=== PATIENT | female | born 1985 | race Hispanic/Latino ===

== ENCOUNTER 2018-02-24 16:34 | Emergency (ER) | payer OTHER ==
[2018-02-24 17:53] VITALS: BMI 39.4
[2018-02-24 18:55] LABS: BASO % 0.3 % (0.0-2.0); EOS # 0.1 K/uL (0.0-0.7); HEMOGLOBIN 12.4 g/dL (12.0-16.0); LYMPH # 1.9 K/uL (1.0-4.3); LYMPH % 20.1 % (20.0-40.0); MEAN CELL VOLUME 98.3 fl (81.0-99.0); MEAN CORPUSCULAR HEMOGLOBIN 34.7 pg (27.0-31.0); MEAN CORPUSCULAR HGB CONC 35.2 g/dL (33.0-37.0); MEAN PLATELET VOLUME 8.1 fl (7.2-11.7); MONO # 0.6 K/uL (0.0-0.8); MONO % 6.1 % (0.0-10.0); NEUT # 6.8 K/uL (1.8-7.0); NEUT % 72.5 % (50.0-75.0); NRBC % 0.1 % (0.0-0.0); RBC 3.59 Mil/uL (3.80-5.20); RED CELL DISTRIBUTION WIDTH 13.4 % (11.5-14.5); WHITE BLOOD COUNT 9.4 K/uL (4.8-10.8)
[2018-02-24 18:58] LABS: INR 0.9; PROTHROMBIN TIME 10.3 Seconds (9.8-13.1)
[2018-02-24 19:00] LABS: PARTIAL THROMBOPLASTIN TIME 26.9 Seconds (25.6-37.1)
[2018-02-24 19:04] LABS: ALBUMIN 3.5 g/dL (3.5-5.0); ALT/SGPT 17 U/L (9-52); AST/SGOT 19 U/L (14-36); BLOOD UREA NITROGEN 12 mg/dl (7-17); CALCIUM 9.4 mg/dL (8.4-10.2); GFR NON-AFRICAN AMERICAN > 60; URIC ACID 5.9 mg/Dl (2.2-7.5)
[2018-02-24 20:35] LABS: SQUAMOUS EPITHIAL < 1 /hpf (0-5); URINE BILIRUBIN NEGATIVE (NEGATIVE); URINE BLOOD NEGATIVE (NEGATIVE); URINE CLARITY CLEAR (Clear); URINE COLOR STRAW (YELLOW); URINE GLUCOSE (UA) NEG (Normal); URINE LEUKOCYTE ESTERASE NEG Leu/uL (Negative); URINE PROTEIN NEGATIVE (NEGATIVE); URINE UROBILINOGEN 0.2-1.0 mg/dL (0.2-1.0)
--- NOTE | 2018-02-24 21:01 | OBADHP ---
Datetime: 02/24/2018 18:13 Admit Comment, IP Provider: 32-year-old at 37.4 (confirmed by first tri ultrasound) presents for high blood pressure. Her has been complicated by GDM, controlled with diet. Her first resulted in a Ceserian at 36 weeks due to preeclampsia, with no post-operative complication s. She is a patient of Dr. Pro and last saw him today. BP on admission was 119/80. Patient repor ts good movement and denies vaginal bleeding, contractions and loss of fluid. She denies headac he, dizziness, change in vision, tingling, chest pain, difficulty breathing, nausea, vomiting, diarrh ea, constipation, urinary symptoms and pitting edema. PMH: denies OBHx: 1x CS @ 36 weeks d/t preeclampsia FHx: denies Allergies: denies Meds: denies ROS: She denies headache, dizziness, change in vision, tingling, chest pain, difficulty breathing, nausea, vomiting, diarrhea, constipation, urinary symptoms and pitting edema. Labs: Blood type O+ RPR neg HIV neg GBS unknown CL/GC unknown HbsAg neg PE: comfortable, in no acute distress CV: RRR Resp: no respiratory distress Abd: no tenderness to palpation Extremities: no pitting edema Assessment: 32-year-old at 37.4 (confirmed by first tri ultrasound) presents for high bloo d pressure. Plan -Continuous EFM - Category 1, reassuring -Preeclampsia labs -24 hour urine -Monitor BP Case discussed with Dr. Jonathan Weldon, PGY1 Patient was seen with resident I agree with the note Pelvic Type - PN: Not Done Extremities - PN: Normal Abdomen - PN: Normal Back - PN: Normal Breast - PN: Not Done Lungs - PN: Normal Heart - PN: Normal Thyroid - PN: Not Done Neurologic - PN: Not Done HEENT - PN: Normal General - PN: Normal FHR - Baseline A Provider: 130 Vital Signs Provider: Reviewed; Within Normal Limits IP Chief Complaint: Signs/Symptoms Gestational HTN NICHD Variability Prov Fetus A: Moderate 6-25bpm NICHD Accel Fetus A IP Provider: [id number] FHR Category Provider Fetus A: Category I NICHD Decel Fetus A IP Provider: None Genitourinary Exam: Not Done DTRs - PN: Not Done EGA AdmitDate IP: 37.4 IP Adm Impression: Term, intrauterine IP Admit Plan: Observation/Evaluation
[2018-02-25 01:48] VITALS: BP 136/81; PULSE 105; RESP 20; TEMP 98.6; O2SAT 100
== END 2018-02-24 21:30 | disposition home or self-care (01) ==
LOC: H.EROB2 16:34
DX: O24.410 Gestational diabetes mellitus in pregnancy, diet controlled (principal); O09.93 Supervision of high risk pregnancy, unspecified, third trimester; Z3A.37 37 weeks gestation of pregnancy; Z87.59 Personal history of other complications of pregnancy, childbirth and the puerperium